=== PATIENT | female | born 1990 | race American Indian/Alaskan Native ===

== ENCOUNTER 2020-05-10 15:34 | Emergency (ER) | payer SELFPAY ==
[2020-05-10 16:45] LABS: Basophils % (Auto) 0.4 % (0.0-1.8); Eosinophils % (Auto) 0.2 % (0.0-4.3); Hematocrit 35.2 % (30.3-42.9); Hemoglobin 12.1 gm/dl (10.1-14.3); Lymphocytes # (Auto) 1.8 K/mm3 (1.2-5.4); Mean Corpuscular HGB Conc 35 % (30-34); Mean Corpuscular Volume 85 fl (79-97); Monocytes # (Auto) 0.5 K/mm3 (0.0-0.8); Monocytes % (Auto) 5.6 % (0.0-7.3); Platelet Count 377 K/mm3 (140-440); Red Blood Count 4.16 M/mm3 (3.65-5.03)
[2020-05-10 16:47] LABS: Blood Urea Nitrogen 8 mg/dL (7-17); Calcium 9.7 mg/dL (8.4-10.2); Hemolysis Index 6
[2020-05-10 16:48] LABS: BUN/Creatinine Ratio 11
--- NOTE | 2020-05-10 16:48 | Emergency Department Report ---
<ADDIE FONTANEZ - Last Filed: 05/10/20 19:55> ED Psych HPI - General Chief Complaint: Psych Stated Complaint: PD STATES SI Time Seen by Provider: 05/10/20 16:35 Source: patient, police Mode of arrival: Ambulatory - History of Present Illness Initial Comments: Patient is 29 years old female with no significant past medical history or psychiatric history. Patient brought to the emergency room by police department from home after patient boyfriend called and stated that patient is trying to kill herself. Patient admitted that she try to cut her wrist just prior to coming to the ER. Patient stated that she has been depressed for the last few d ays. She stated that her boyfriend broke up with her on their first anniversary and she is very upset. Patient stated that she tried to cut her wrist but she found it painful and she stopped. She denied any homicidal ideation. No previous suicidal attempt or thoughts. She denied any visual or auditory hallucination. MD Complaint: suicidal ideation, feels depressed -: days(s) Associated Psychiatric Symptoms: depression, suicidal ideation Associated Symptoms: denies other symptoms Treatments Prior to Arrival: placed on mental he If Self Harm: admits thoughts of, has plan, has acted on plan, self-inflicted trauma - Related Data Home Medications Medication Instructions Recorded Confirmed Last Taken No Known Home Medications [No 05/10/20 05/10/20 Unknown Reported Home Medications] Allergies Allergy/AdvReac Type Severity Reaction Status Date / Time No Known Allergies Allergy Unverified 05/11/20 09:57 ED Review of Systems Comment: All other systems reviewed and negative Cardiovascular: denies: chest pain, palpitations Gastrointestinal: denies: abdominal pain, nausea, vomiting, diarrhea Musculoskeletal: denies: back pain Neurological: denies: headache, weakness, numbness, paresthesias, confusion ED Past Medical Hx - Past Medical History Previous Medical History?: No Hx Hypertension: No Hx Congestive Heart Failure: No Hx Diabetes: No Hx Deep Vein Thrombosis: No Hx Renal Disease: No Hx Sickle Cell Disease: No Hx Seizures: No Hx Asthma: No Hx COPD: No Hx HIV: No - Surgical History Past Surgical History?: Yes Additional Surgical History: L forearm - Social History Smoking Status: Never Smoker Substance Use Type: None - Medications Home Medications: Home Medications Medication Instructions Recorded Confirmed Last Taken Type No Known Home Medications [No 05/10/20 05/10/20 Unknown History Reported Home Medications] ED Physical Exam - General Limitations: No Limitations General appearance: alert, in no apparent distress - Head Head exam: Present: atraumatic, normocephalic, normal inspection - Eye Eye exam: Present: normal appearance, PERRL - ENT ENT exam: Present: normal exam, normal orophraynx, mucous membranes moist - Neck Neck exam: Present: normal inspection, full ROM. Absent: tenderness, meningismus, lymphadenopathy, thyromegaly - Respiratory Respiratory exam: Present: normal lung sounds bilaterally - Cardiovascular Cardiovascular Exam: Present: regular rate, normal rhythm, normal heart sounds - GI/Abdominal GI/Abdominal exam: Present: soft, normal bowel sounds. Absent: distended, tenderness, guarding, rebound, rigid, organomegaly, mass, bruit, pulsatile mass, hernia - Extremities Exam Extremities exam: Present: normal inspection, full ROM, normal capillary refill. Absent: pedal edema, calf tenderness - Back Exam Back exam: Absent: CVA tenderness (R), CVA tenderness (L) - Neurological Exam Neurological exam: Present: alert, oriented X3, CN II-XII intact - Psychiatric Psychiatric exam: Present: depressed, anxious, suicidal ideation. Absent: homicidal ideation - Skin Skin exam: Present: warm, intact, normal color ED Medical Decision Making - Lab Data Result diagrams: 05/10/20 16:17 05/10/20 16:17 - Medical Decision Making Patient is 29 years old female with no significant past medical history or psychiatric history. Patient brought to the emergency room by police department from home after patient boyfriend called and stated that patient is trying to kill herself. Patient admitted that she try to cut her wrist just prior to coming to the ER. Patient stated that she has been depressed for the last few d ays. She stated that her boyfriend broke up with her on their first anniversary and she is very upset. Patient stated that she tried to cut her wrist but she found it painful and she stopped. She denied any homicidal ideation. No previous suicidal attempt or thoughts. She denied any visual or auditory hallucination. Labs reviewed and is unremarkable. Patient is medically clear for psychiatric evaluation. ED Disposition Clinical Impression: Acute stress reaction, Adjustment disorder Disposition: DC-01 TO HOME OR SELFCARE Condition: Stable Additional Instructions: Outpatient COMMUNITY Behavioral Health Resources: [facility] ([facility]) [address] [place] [address] / [phone] Saturday thru Saturday - 8am - 5pm [facility] Address: [address] [place] [address] Saturday thru Saturday- 7am-2pm [facility] Address: [address] [place] [address] Saturday thru Saturday: 8:30AM-5PM CRISIS RESOURCES [place] Crisis Line: Suicide Prevention Line: Crisis Text Line: Text START to 884402 Emergency: 911 OUTPATIENT MENTAL HEALTH RESOURCES [facility], [facility] Amanda Tinajero MD: [address], [address] [place] [address] [place] [address] [facility]: [facility] [address] [place] [address] [place] [address] [phone] [facility]: [facility] Healthcare: [address] [facility] [address] [place] [address] [place] [address] [facility] [address] [facility]: Chato Mustafa MD: [address] [facility] [address] [facility] [address] [facility]: [address] [place], [place] [id number] [phone] [place] CRISIS AND ACCESS LINE: Referrals: PRIMARY CARE, [Primary Care Provider] - 3-5 Days <JERAD MÉNDEZ - Last Filed: 05/11/20 14:10> ED Review of Systems ROS: Stated complaint: PD STATES SI Other details as noted in HPI ED Course Vital Signs 05/10/20 05/10/2005/10/20 15:58 16:00 20:10 Temperature 98.5 F 98.5 F 98.7 F Pulse Rate 82 82 82 Respiratory 18 16 16 Rate Blood Pressure 128/91 Blood Pressure 128/91 129/87 [Right] O2 Sat by Pulse 100 100 100 Oximetry 05/11/20 05/11/20 05/11/20 02:18 08:00 08:50 Temperature 97.8 F 96.8 F L Pulse Rate 82 86 Respiratory 18 18 20 Rate Blood Pressure Blood Pressure 111/77 118/69 [Right] O2 Sat by Pulse 100 100 100 Oximetry ED Medical Decision Making - Lab Data Result diagrams: 05/10/20 16:17 05/10/20 16:17 - Medical Decision Making 1013 has been rescinded by psychiatric team. Patient is discharged home with outpatient resources. Diagnosis per psychiatric team adjustment disorder, acute stress reaction Critical care attestation.: If time is entered above; I have spent that time in minutes in the direct care of this critically ill patient, excluding procedure time. ED Disposition Is pt being admited?: No Does the pt Need Aspirin: No
[2020-05-10 21:18] LABS: Bilirubin,Urine NEG (Negative); Blood,Urine NEG (Negative); Color,Urine Yellow (Yellow); Mucus,Urine 3+ /HPF; Urobilinogen,Urine < 2.0 mg/dL (<2.0)
[2020-05-10 21:23] LABS: Amphetamine Screen,Urine PRESUMPTIVE POSITIVE; Benzodiazepines Screen,Urine PRESUMPTIVE NEGATIVE; Cannabinoid Screen,Urine PRESUMPTIVE NEGATIVE; Cocaine Screen,Urine PRESUMPTIVE NEGATIVE; Methadone Screen,Urine PRESUMPTIVE NEGATIVE; Opiate Screen,Urine PRESUMPTIVE NEGATIVE
[2020-05-11 08:51] VITALS: BP 118/69
--- NOTE | 2020-05-11 10:06 | Consultation ---
History of Present Illness - Reason for Consult Consult date: 05/11/20 Reason for consult: [facility] Requesting physician: ADDIE FONTANEZ - History of Present Psychiatric Illness Per ED: Patient is 29 years old female with no significant past medical history or psychiatric history. Patient brought to the emergency room by police department from home after patient boyfriend called and stated that patient is trying to kill herself. Patient admitted that she try to cut her wrist just prior to coming to the ER. Patient stated that she has been depressed for the last few days. She stated that her boyfriend broke up with her on their first anniversary and she is very upset. Patient stated that she tried to cut her wrist but she found it painful and she stopped. She denied any homicidal ideation. No previous suicidal attempt or thoughts. She denied any visual or auditory hallucination. Per [facility]: is a 29 y/o AA female who presents to the ED with a chief complaint of cutting her wrist. During current ax, pt. presents with depressed mood, tearful affect, and appropriate speech. Pt. verbalized her thoughts clearly and indicated that shes had a rough year. Pt identifies her stressors as a bad breakup, job search, receiving denials, virtual learning, and my car keep messing up. Pt reports that she has a lot of pressure and shes not bringing back results. Pt. indicated that her grandmother boyfriend feels like pt should be doing more. Per triage note, Per EMS and PD, Pt had and altercation with boyfriend and threatened to kill herself. Pt denies making that statement. PD reports pt had redness noted to her wrist, pt states she just "pressed down real hard" which is what her mother did in attempt to hurt herself. Redness noted Pt denes any current or historical psychiatric treatment. Currently denies SI,HI, AVH, or paranoia. No medical hx reported. Pt reports that she lives for her two kids and is thinking about how they would feel if it was successful. Pt reports that it was not worth it. I just let everything build up. Denies a support system. Pt. reports that she uses alcohol but denies abusing it. Onset age 21. Last use was 2 days ago. Amount unknown. No treatment reported for alcohol or substance use. Pt. reports being on probation since October for possession less than an ounce. Denies income. PSYCH HPI Patient is a 29-year-old single with children, unemployed -[place] female with no prior psychiatric history or significant past medical history who was brought to the ER by EMS with chief complaint suicidal thoughts 2 days ago per boyfriend with intention to cut her wrist. Patient reports she just recently went through a break-up with her boyfriend on top of other things that she has been going through, and 2 days ago she had told her boyfriend that she is thinking about hurting herself but she knows she could not do it because of her kids who currently resides with her grandma, and again yesterday while talking to the on the phone she is on a she was not happy and that was when he decided to call 911 come pick her up. Patient reports she has been under a lot of stress lately most especially with being unemployed and searching for jobs, having the kids at home doing Virtual school and family relationship dynamics have all contributed to her stress. She denies wanting to hurt herself and says she has an appointment interview for work today at 2:30. Patient reports she had been living with the for a year before the break up but she does have a place to stay She denies illicit drug use, denies AVH and bout starting college for computer forensic PAST PSYCHIATRIC HISTORY Diagnoses: none reported Suicide attempts or Self-harm behavior: none reported Prior psychiatric hospitalizations: none reported Substance Abuse history: Meño Previous psychiatric medications tried: none reported Outpatient treatment: none reported PAST MEDICAL HISTORY: none reported Family Psychiatric History: None reported or documented SOCIAL HISTORY Marital Status: Single Living Arrangements: with self Employment Status: unemployed Access to guns/weapons: none reported Education: High school about to start college History of Abuse: none reported Legal History: Yes REVIEW OF SYSTEMS Constitutional: Negative for weight loss ENT: Negative for stridor Respiratory: Negative for cough or hemoptysis All other systems reviewed and are negative MENTAL STATUS EXAMINATION General Appearance and Behavior: Age appropriate,good hygiene, wearing appropriate clothes, good eye contact, cooperative with questioning. Cooperation: Participating/engaged Psychomotor Behavior: unremarkable and within normal limits Mood: Good Affect and affective range: congruent with mood Thought Process: Fluent/Logical Thought Content: Within reality Speech: Normal volume, Regular rate and rhythm Intellectual Functioning: Average Suicidal Ideation: Denies SI Homicidal Ideation: Denies HI Impulse Control:Unimpaired Insight and Judgment: Normal insight and judgment Memory: Normal Attention: Normal Orientation: Alert, oriented Assessment and Plan - Psychiatric problem (1) Adjustment disorder Current Visit: Yes Status: Acute (2) Acute stress reaction Current Visit: Yes Status: Acute Treatment Plan MEDICATIONS: Risks, benefits and alternatives of medications discussed with the patient, questions answered and consent obtained from patient. PSYCHOTHERAPY: Supportive psychotherapy provided MEDICAL: Per primary team DELIRIUM PRECAUTIONS: Please re-orient patient frequently, keep lights on during the day, and minimize benzodiazepines and opiates as these medications could worsen patient's confusion. OIL ANALYST: DISPOSITION: Do Not Recommend acute inpatient psychiatric hospitalization at this time LEGAL STATUS: 1013 rescinded FOLLOW-UP: Will sign off Thank you for the consult. Please contact with any questions and/or concerns. Medications and Allergies Allergies Allergy/AdvReac Type Severity Reaction Status Date / Time No Known Allergies Allergy Unverified 05/11/20 09:57 Home Medications Medication Instructions Recorded Confirmed Last Taken Type No Known Home Medications [No 05/10/20 05/10/20 Unknown History Reported Home Medications] Mental Status Exam - Vital signs Last Vital Signs Temp 96.8 F L 05/11/20 08:50 Pulse 86 05/11/20 08:50 Resp 20 05/11/20 08:50 BP 118/69 05/11/20 08:50 Pulse Ox 100 05/11/20 08:50 Results Result Diagrams: 05/10/20 16:17 05/10/20 16:17 Abnormal lab results 05/10/20 05/10/20 05/10/20 Range/Units 16:17 16:17 16:17 MCHC (30-34) % RDW (13.2-15.2) % Seg Neutrophils % (40.0-70.0) % Carbon Dioxide 21 L (22-30) mmol/L Salicylates < 0.3 L (2.8-20.0) mg/dL Acetaminophen 5.0 L (10.0-30.0) ug/mL 05/10/20 Range/Units 16:17 MCHC 35 H (30-34) % RDW 13.0 L (13.2-15.2) % Seg Neutrophils % 73.8 H (40.0-70.0) % Carbon Dioxide (22-30) mmol/L Salicylates (2.8-20.0) mg/dL Acetaminophen (10.0-30.0) ug/mL All other labs normal. Assessment and Plan - Psychiatric problem (1) Adjustment disorder Current Visit: Yes Status: Acute (2) Acute stress reaction Current Visit: Yes Status: Acute
== END 2020-05-11 14:16 | disposition home or self-care (01) ==
LOC: ED 15:34
DX: F43.0 Acute stress reaction (principal); F43.20 Adjustment disorder, unspecified
CPT/HCPCS: 36415; 80048; 80307; 80320; 81001; 84703; 85025; G0480